=== PATIENT | female | born 1995 | race Caucasian/White ===

== ENCOUNTER 2018-06-17 11:01 | Emergency (ER) | payer SELFPAY ==
[~2018-06-17] VITALS: Ht 166.4 cm; Wt 137.9 kg
[2018-06-17 11:03] VITALS: BP 140/78
--- NOTE | 2018-06-17 11:12 | NUR ---
Patient ambulated to bed 6. RN evaluating patient at bedside.
--- NOTE | 2018-06-17 11:12 | NUR ---
BIB BOYFRIEND. AAO X4 PT C/O AB PAIN S/P MECAHNICAL FALL EARLIER THIS MORNING. PER PT SHE WAS WALKING AND TRIPPED ON SOMETHING AND FELL TO HER R SIDE. PT DENIES LOSS OF CONSCIOUSNESS AND HITTING HEAD. PT STATES SHE IS 15 WEEKS , DENIES CARE. PERRLA BRISK 3 MM. CLEAR SPEECH, STEADY GAIT. EQUAL ABEBA STRENGTH TO UPPER AND LOWER STRENGTH. DENIES ANY VAGINAL BLEEDING. PT STATES THAT SHE HAD A BUG BITE X 4 DAYS AGO, ABDOMINAL LLQ REDNESS, RAISED SKIN. DENIES DRAINAGE. AFEBRILE. HOB UP. BED SIDE RAILS UP X1. ON LOW BED POSITION, LOCKED. ER MADE AWARE OF PT STATUS.
--- NOTE | 2018-06-17 11:20 | NUR ---
CALLED OB DEPARTMENT, SPOKE TO SHANNON TO GET AN L&D NURSE FOR HEART TONE CHECK.
--- NOTE | 2018-06-17 11:26 | NUR ---
L&D NURSE AT BEDSIDE FOR HEART TONE CHECK.
--- NOTE | 2018-06-17 11:38 | NUR ---
HEART TONE PER L& D NURSE 195 BEATS PER MINUTE
--- NOTE | 2018-06-17 12:20 | NUR ---
Dr. Campa evaluating patient at bedside.
--- NOTE | 2018-06-17 12:21 | NUR ---
Emmanuelle apple in ED - 06/17/18 at 1222 by [email or web address] Patient ambulated to bed 5 with family. RN evaluating patient at bedside.
[2018-06-17] MEDS ORDERED: CLINDAMYCIN 600 MG/4 ML VIAL IM ONE (12:25)
[2018-06-17] MEDS ORDERED: LACTATED RINGERS 1,000 ML IV ONE (12:25)
--- NOTE | 2018-06-17 12:43 | NUR ---
Patient taken to US via wheelchair by tech.
--- NOTE | 2018-06-17 12:45 | NUR ---
UNABLE TO GIVE MEDS AT THIS TIME. PT OUT FOR US EVALUATION.
--- NOTE | 2018-06-17 13:23 | NUR ---
Patient returned from US. RN re-evaluating patient at bedside.
[2018-06-17] MEDS ORDERED: CLINDAMYCIN 900 MG in DEXTROSE 5% 100 ML IV ONE ×2 (13:35→13:45)
--- NOTE | 2018-06-17 13:37 | NUR ---
Dr. Campa evaluating patient at bedside.
[2018-06-17 13:42] LABS: BASOPHILS % (AUTO) 0.4 % (0.0-2.0); EOSINOPHILS # (AUTO) 0.2 K/uL (0-0.4); EOSINOPHILS % (AUTO) 1.7 % (0.0-4.0); HEMATOCRIT 38.4 % (36-48); HEMOGLOBIN 12.7 g/dL (12.0-16.0); LYMPHOCYTES # (AUTO) 1.6 K/uL (2.5-16.5); LYMPHOCYTES % (AUTO) 13.6 % (20.5-51.1); MEAN CORPUSCULAR HEMOGLOBIN 30 pg (27-31); MEAN CORPUSCULAR HGB CONC 33 g/dL (33-37); MONOCYTES % (AUTO) 8.6 % (1.7-9.3); NEUTROPHILS # (AUTO) 8.8 K/uL (1.8-7.7); NEUTROPHILS % (AUTO) 75.7 % (42.2-75.2); PLATELET COUNT (AUTO) 328 K/uL (140-450); RED BLOOD CELL COUNT(AUTO) 4.32 MIL/uL (4.20-5.40); RED CELL DISTRIBUTION WIDTH 13.7 % (11.6-13.7); WHITE BLOOD COUNT (AUTO) 11.6 K/uL (4.8-10.8)
[2018-06-17 13:43] LABS: APPEARANCE,URINE CLEAR (CLEAR); BILIRUBIN,URINE NEGATIVE (NEGATIVE); BLOOD, URINE NEGATIVE (NEGATIVE); COLOR,URINE YELLOW (YELLOW); LEUKOCYTE ESTERASE ,URINE NEGATIVE (NEGATIVE); NITRITE, URINE NEGATIVE (NEGATIVE); UGLUCOSE NEGATIVE (NEGATIVE)
[2018-06-17] MEDS ORDERED: CLINDAMYCIN 900 MG/6 ML VIAL IV ONE (13:53)
[2018-06-17 14:07] LABS: RBC,URINE NONE SEEN /HPF (0-5); WBC,URINE 0-5 /HPF (0-5)
[2018-06-17 14:08] LABS: URINE AMORPHOUS URATE 1+ /HPF (None Seen)
--- NOTE | 2018-06-17 15:26 | NUR ---
Dr. Campa re-evaluating patient at bedside.
[2018-06-17 15:45] VITALS: BP 95/44
--- NOTE | 2018-06-17 15:45 | NUR ---
Patient discharged with v/s stable. Written and verbal after care instructions given and explained. Patient alert, oriented and verbalized understanding of instructions. Ambulatory with steady gait. All questions addressed prior to discharge. ID band removed. Patient advised to follow up with PMD. Rx of CLINDAMYCIN, [facility] given. Patient educated on indication of medication including possible reaction and side effects. Opportunity to ask questions provided and answered.
== END 2018-06-17 15:45 | disposition home or self-care (01) ==
LOC: MED 11:01
DX: O26.891 Other specified pregnancy related conditions, first trimester (principal); S30.861A Insect bite (nonvenomous) of abdominal wall, initial encounter; Z3A.09 9 weeks gestation of pregnancy; W57.XXXA Bitten or stung by nonvenomous insect and other nonvenomous arthropods, initial encounter; Y93.89 Activity, other specified; Y92.098 Other place in other non-institutional residence as the place of occurrence of the external cause; Y99.8 Other external cause status
CPT/HCPCS: 36415; 76536; 76817; 81001; 81025; 84702; 85025; 86900; 86901; 96365; 96366; 99284; J3490; J7120; Q0092